=== PATIENT | male | born 1965 | race Caucasian/White ===

== ENCOUNTER 2022-04-17 12:56 | Outpatient (REF) | payer MEDICAID, SELFPAY ==
--- NOTE | 2022-04-20 08:48 | MHC.AU.HA1 ---
Hearing Aid Evaluation Date of Visit: 04/17/22 Historical Information: Description of Hearing: Right- Moderate to profound sensorineural hearing loss- very poor word discrimination (4%) Left- Mild to severe sensorineural hearing loss- excellent word discrimination (100%) Summary: Patient has been followed by [facility] for asymmetrical hearing loss. He has used personal amplifiers purchased from the store in the past, but did not find that they met his needs. He also felt that wearing on the right ear was more distracting than beneficial. Discussed options. A Bi-CROS system is recommended. Patient is interested in a rechargeable model and likes the BTE style. At the moment there no manufacturers offering a BTE-R style for the CROS itself, but we can still get a BTE-R for the left ear and get a similar mold for the right ear to help with retention. Hearing Aid Prescription: Based on the individual?s shared listening needs, communication environments, dexterity, desire for connectivity, and personal preferences, the following prescription for amplification has been made: Right ear: Make, Model, Color: [employer] CROS PX miniRITE R, Chroma Beige Battery Size: Rechargeable Bowling Ball Finisher/Slim Tube: 2 Type of Earmold/Dome/CShell/SlimTip: Microsonic M2000 skeleton mold Left ear: Make, Model, Color: [employer]on More 2 miniBTE-R, Chroma Beige Battery Size: Rechargeable Type of Earmold/Dome/CShell/SlimTip: Microsonic M2000 skeleton mold Action Taken/Action Needed: Earmold Impressions Taken. Hearing Instrument Fitting to be scheduled when materials arrive Primary Diagnosis: H90.3 Bilateral Sensorineural Hearing Loss Signature: Provider: Darwin Portillo, [facility]
== END 2022-04-17 12:57 | disposition home or self-care (01) ==
LOC: HO.HAP 12:56
PROVIDERS: PCP Internal Medicine; Visit Provider Internal Medicine
DX: Z46.1 Encounter for fitting and adjustment of hearing aid (principal); H90.3 Sensorineural hearing loss, bilateral
CPT/HCPCS: 92591; V5275

== ENCOUNTER 2022-06-08 10:26 | Outpatient (REF) | payer MEDICAID, SELFPAY ==
--- NOTE | 2022-06-08 11:43 | MHC.AU.HA2 ---
Hearing Instrument Fitting- Adult- Binaural Date of Visit: 06/08/22 Hearing Instruments Dispensed: Right Ear: Make, Model, Color, Serial Number: Ot[employer]on CROS PX miniRITE R, Chroma Beige [id number] Bowling Floor Manager Repair Warranty: 05/20/2025 Bowling Floor Manager Loss and Damage Warranty: 05/20/2025 [facility] Service Plan: 06/08/2022 Battery Size: Rechargeable Real Estate Manager/Slim Tube: 2 Earmold/Dome/CShell/SlimTip: Microsonic M2000 skeleton mold Left Ear: Make, Model, Color, Serial Number: Otalon More 2 miniBTE-R, Chroma Beige SN [id number] Bowling Floor Manager Repair Warranty: 05/20/2025 Bowling Floor Manager Loss and Damage Warranty: 05/20/2025 [facility] Service Plan: 06/08/2022 Battery Size: Rechargeable Real Estate Manager/Slim Tube: Earmold/Dome/CShell/SlimTip: Microsonic M2000 skeleton mold Accessories/Assistive Technology: Business Development Professional 1.0 MINIBTE R Oticon SN [id number] [facility] 05/20/2025 Summary of Fitting: Hearing Aid Fitting- Verifit performed and levels adjusted to better reach targets. Patient felt full target was a little too loud- lowered overall gain by 3 steps. Patient was pleased with the sound of the instruments and did not feel any additional adjustments were needed at this time. Patient was able to hear well when I was standing on his right side, out of line of sight. Hearing aid care and use were discussed and practiced. Recommendations: A hearing instrument follow-up was scheduled. Diagnosis Code(s): Primary Diagnosis: H90.3 Bilateral Sensorineural Hearing Loss Signature: Provider: Darwin Portillo, [facility]
== END 2022-06-08 10:27 | disposition home or self-care (01) ==
LOC: HO.HAP 10:26
PROVIDERS: Visit Provider Internal Medicine
DX: Z46.1 Encounter for fitting and adjustment of hearing aid (principal); H90.3 Sensorineural hearing loss, bilateral
CPT/HCPCS: V5011; V5020; V5221; V5240; V5264

== ENCOUNTER 2022-08-29 09:44 | Outpatient (REF) | payer MEDICAID, SELFPAY ==
--- NOTE | 2022-08-29 14:39 | MHC.AU.HA3 ---
Hearing Instrument Follow-Up- Binaural Date of Visit: 08/29/22 Right Ear: Make, Model, Color, Serial Number: O[employer]on CROS PX miniRITE R, Chroma Beige [id number] Clerk Of Works Repair Warranty: 05/20/2025 Clerk Of Works Loss and Damage Warranty: 05/20/2025 [facility] Service Plan: 06/08/2023 Battery Size: Rechargeable Malt Loader/Slim Tube: 2 Earmold/Dome/CShell/SlimTip:Microsonic M2000 skeleton mold Dispensed By: [facility] Date of Fittin06/08/2022 Left Ear: Make, Model, Color, Serial Number: Oticon More 2 miniBTE-R, Chroma Beige SN [id number] Clerk Of Works Repair Warranty: 05/20/2025 Clerk Of Works Loss and Damage Warranty: 05/20/2025 [facility] Service Plan: 06/08/2023 Battery Size: Rechargeable Earmold/Dome/CShell/SlimTip: Microsonic M2000 skeleton mold Dispensed By: [facility] Date of Fittin06/08/2022 Follow-Up Summary: Patient dropped off both hearing instruments, reporting they were not charging. The tubing in the left hearing aid was completely clogged with wax. Re-tubed the mold. Tried the right instrument in a stock supercharger mechanic, and lit up orange. As a precaution, both hearing instruments were sent to [employer] for repair. The molds and case are in the Repair drawer. Left a voicemail with the patient to let him know they were going out for repair. Recommendations: Patient will be contacted when materials have arrived. Diagnosis Code(s): Primary Diagnosis: H90.3 Bilateral Sensorineural Hearing Loss Signature: Provider: Darwin Portillo, [facility]
== END 2022-08-29 09:45 | disposition home or self-care (01) ==
LOC: HO.HAP 09:44
PROVIDERS: Visit Provider Internal Medicine
DX: Z13.89 Encounter for screening for other disorder (principal)

== ENCOUNTER 2022-09-25 12:48 | Outpatient (REF) | payer OTHER, SELFPAY | END 2022-09-25 12:49 | disposition home or self-care (01) | LOC: HO.HAP 12:48 | PROVIDERS: Visit Provider Internal Medicine | DX: Z13.89 Encounter for screening for other disorder (principal) ==

== ENCOUNTER 2022-10-12 12:45 | Emergency (ER) | payer OTHER, SELFPAY ==
--- NOTE | ~2022-10-12 | XR_ITS ---
EXAMINATION: XR ABDOMEN KUB CLINICAL INDICATION: Constipation COMPARISON: None available. TECHNIQUE: AP view of the abdomen. FINDINGS: Paucity of bowel gas in the midabdomen slightly limits evaluation. No dilated loops of bowel visualized. Mild fecal loading noted throughout the colon. Degenerative arthropathy of the thoracolumbar spine. Degenerative changes of the bilateral femoral acetabular joints. Visualized portions of the chest are unremarkable. Soft tissues are unremarkable. XR/XR KUB IMPRESSION: 1. Paucity of bowel gas in the midabdomen slightly limits evaluation. 2. No dilated loops of bowel visualized. 3. Mild fecal loading noted throughout the colon.
[2022-10-12 13:25] VITALS: BP 135/75; PULSE 71; RESP 16; TEMP 36.5; O2SAT 95; BMI 35.9
--- NOTE | 2022-10-12 13:26 | ED_ITS ---
HPI - General Adult General Chief complaint: Abdominal Pain Stated complaint: constipated Time Seen by Provider: 10/12/22 15:50 Source: patient Mode of arrival: ambulatory Limitations: no limitations History of Present Illness HPI narrative: 57-year-old male presents emergency room and stating he has not had a bowel movement for the past 4 days. Patient states he is taking MiraLax then switched magnesium citrate. Patient states he has got some crampy pain in the stop eating today he denies fevers chills chest pain nausea vomiting. He denies having any previous surgeries to his abdomen. Related Data Previous Rx's Medication Instructions Recorded polyethylene glycol 3350 17 17 g PO BID #510 grams 10/12/22 gram/dose oral powder (Miralax) sennosides 8.6 mg capsule (senna) 8.6 mg PO BEDTIME #30 caps 10/12/22 Allergies Allergy/AdvReac Type Severity Reaction Status Date / Time amoxicillin Allergy Hives Verified 10/12/22 13:25 Review of Systems Review of Systems: Review of systems: General: Patient denies any fever chills recent illness or falls Musculoskeletal: Denies back pain or body aches or other injuries HEENT: denies headache, runny nose, ear pain Respiratory: denies shortness of breath, cough Cardiovascular: no chest pain or palpitations : denies dysuria, frequency Abdomen: Constipation no nausea vomiting denies abdominal pain Extremities: no swelling, no pain Skin: no diaphoresis Yes all other systems are reviewed and are negative PMFSH Social History Social History Alcohol intake: current Alcohol intake frequency: holidays/special occasions only Smoked in Last 30 Days: No Use of substances other than those prescribed or required for medical reasons: No Advance Directives: No Physical Exam ED Vital Signs: Vital Signs - 24 hr 10/12/22 13:25 10/12/22 16:00 Temperature 97.7 F 99.6 F Pulse Rate 71 60 Respiratory Rate 16 16 Blood Pressure 135/75 131/75 Pulse Oximetry 95 Oxygen Delivery Method Room Air Room Air BMI result Body Mass Index 35.9 General: Well-appearing well-nourished in no signs of distress HEENT: Normocephalic atraumatic Neck: No signs of JVD, no masses no tenderness or lymphadenopathy Cardiovascular: Regular rate and rhythm Respiratory: Clear to auscultation bilaterally Abdomen: Soft nontender no masses rectal exam performed guiac negative quality assurance specialist confirmed. No stool was found in the rectal vault Extremities: Normal pedal pulses no signs of edema Skin: Dry warm no rashes Back: No tenderness full ROM Course Course Course Narrative: RME- 57-year-old male presents for evaluation of left lower abdominal pain, constipation. Symptoms started 1 week ago. I going to he reports he has not had a bowel movement in the last week. He has tried [id number] MiraLax and magnesium citrate without any improvement. Plan for labs, KUB. Further workup as directed by primary provider Medical Decision Making Medical Decision Making [facility] Narrative: 49-year-old male with 4 days of constipation patient looks otherwise well as belly exam is benign I do not think patient needs any imaging I do feel comfortable sending the patient home with senna and MiraLax twice a day. Differential Diagnosis Differential Diagnoses: The differential diagnosis associated with the presentation includes Constipation bowel obstructions much less likely as the patient has no history of surgeries his belly exam is benign Lab Data [facility] Lab Attestation statement: I reviewed the patient's lab results. 10/12/22 13:45 10/12/22 13:45 Labs: Lab Results 10/12/22 10/12/22 10/12/22 Range/Units 13:45 13:45 16:13 WBC 14.0 H (4.8-10.8) X10*3/uL RBC 4.66 (4.60-5.80) X10*6/uL Hgb 13.4 L (14.0-18.0) g/dl Hct 39.9 L (42.0-52.0) % MCV 85.6 (80.0-98.0) fL MCH 28.8 (27.0-33.0) pg MCHC 33.6 (31.0-36.0) g/dl RDW 13.0 (11.0-16.0) % Plt Count 198 (160-400) X10*3/uL MPV 11.9 (9.4-12.4) fL Immature Gran % (Auto) 0.4 (0.0-0.4) % Neut % (Auto) 82.2 H (45-73) % Lymph % (Auto) 7.8 L (20-40) % [place] % (Auto) 8.5 (2-11) % Eos % (Auto) 0.9 (0-4) % Baso % (Auto) 0.2 (0-2) % Lymph # (Auto) 1.1 L (1.2-4.9) X10*3/uL [place] # (Auto) 1.2 (0.1-1.2) X10*3/uL Eos # (Auto) 0.1 (0.0-0.4) X10*3/uL Baso # (Auto) 0.0 (0.0-0.2) X10*3/uL Abs Immat Gran (auto) 0.05 H (0.00-0.03) X10*3/uL Absolute Neuts (auto) 11.5 H (2.0-8.3) x10*3/uL Absolute Nucleated RBC 0.000 (0.0-0.012) X10*3/uL Nucleated RBC % (auto) 0.0 (0.0-0.2) /100WBC Sodium 141 (135-145) mmol/L Potassium 4.2 (3.3-5.1) mmol/L Chloride 106 (96-108) mmol/L Carbon Dioxide 30 H (22-29) mmol/L Anion Gap 9 L (12-20) BUN 6 L (9-16) mg/dL Creatinine 0.73 (0.5-1.4) mg/dL Estim Creat Clear Calc 126.7 Estimated GFR > 60 Random Glucose 101 (60-115) mg/dL Calcium 9.5 (8.4-10.2) mg/dL Total Bilirubin 0.9 (0.0-1.0) mg/dL AST 15 (5-37) U/L ALT 20 (0-40) U/L Alkaline Phosphatase 63 (39-117) U/L Total Protein 6.1 L (6.5-8.0) g/dL Albumin 3.3 L (3.5-5.0) g/dL Lipase 12 (8-78) U/L Urine Color Yellow Urine Appearance Clear Urine pH 6.5 (5.0-9.0) Ur Specific [place] 1.020 (1.005-1.025) Urine Protein Negative (Neg-Trace) mg/dL Urine Glucose (UA) Negative (Negative) mg/dL Urine Ketones Negative (Negative) mg/dL Urine Blood Negative (Negative) Urine Nitrite Negative (Negative) Ur Leukocyte Esterase Negative (Negative) Urine RBC 3-5 H (0-2) /HPF Urine WBC 0-5 (0-5) /HPF Ur Squamous Epith Cells 0-2 (0-2) /HPF Urine Bacteria None Seen (None Seen) Hyaline Casts 0-2 (0-2) /LPF Radiology Impression Discussion of test interpretation with radiology: I have reviewed the radiologist's reading. Radiologist Impression: Abdominal shows some stool and fecal loading External Record Review External record reviewed: Inpatient record Discharge Plan Discharge Clinical Impression: Constipation Patient Disposition: Home, Self-Care Instructions: Constipation (DC), Fleet Enema (ED) Additional Instructions: You were seen today for constipation You had an x-ray and labs done which were all unremarkable. Please take MiraLax twice a day you also try this and see if that helps relieve her symptoms. Prescriptions: New polyethylene glycol 3350 [Miralax] 17 gram/dose powder 17 g PO BID Qty: 510 0RF senna 8.6 mg capsule 8.6 mg PO BEDTIME Qty: 30 0RF
[2022-10-12 13:50] LABS: MANUAL DIFF FLAG NO
[2022-10-12 14:06] LABS: Basophils Percent Auto 0.2 % (0-2); Eosinophils Absolute Auto 0.1 X10*3/uL (0.0-0.4); Eosinophils Percent Auto 0.9 % (0-4); Hematocrit 39.9 % (42.0-52.0); Hemoglobin 13.4 g/dl (14.0-18.0); Imm Gran Abs Auto 0.05 X10*3/uL (0.00-0.03); Imm Gran Pct Auto 0.4 % (0.0-0.4); Lymphocytes Absolute Auto 1.1 X10*3/uL (1.2-4.9); Lymphocytes Percent Auto 7.8 % (20-40); Mean Corpuscular HGB Conc 33.6 g/dl (31.0-36.0); Mean Corpuscular Hemoglobin 28.8 pg (27.0-33.0); Mean Corpuscular Volume 85.6 fL (80.0-98.0); Mean Platelet Volume 11.9 fL (9.4-12.4); Monocytes Absolute Auto 1.2 X10*3/uL (0.1-1.2); Monocytes Percent Auto 8.5 % (2-11); Neutrophils Absolute Auto 11.5 x10*3/uL (2.0-8.3); Neutrophils Percent Auto 82.2 % (45-73); Platelet Count 198 X10*3/uL (160-400); Red Blood Count 4.66 X10*6/uL (4.60-5.80)
[2022-10-12 14:20] LABS: Alanine Aminotransferase 20 U/L (0-40); Albumin Level 3.3 g/dL (3.5-5.0); Alkaline Phosphatase 63 U/L (39-117); Anion Gap 9 (12-20); Aspartate Amino Transferase 15 U/L (5-37); Bilirubin Total 0.9 mg/dL (0.0-1.0); Blood Urea Nitrogen 6 mg/dL (9-16); Calcium 9.5 mg/dL (8.4-10.2); Carbon Dioxide 30 mmol/L (22-29); Chloride 106 mmol/L (96-108); Creatinine Clr Calc Pharmacy 126.7; Estimated Glomerular Filt Rate > 60; Glucose Random 101 mg/dL (60-115); Lipase 12 U/L (8-78); Potassium 4.2 mmol/L (3.3-5.1); Sodium 141 mmol/L (135-145); Total Protein 6.1 g/dL (6.5-8.0)
[2022-10-12 16:00] VITALS: BP 131/75; PULSE 60; RESP 16; TEMP 37.6
--- NOTE | 2022-10-12 16:14 | MHC.EDTECH ---
THIS PCT ASSUMED CARE OF PT AT 1500 ,VITALS SIGN TAKEN ,PT URINE SAMPLE COLLECTED AND SENT TO LAB .
[2022-10-12 16:28] LABS: Appearance Urine Clear; Color Urine Yellow; Glucose Urine UA Negative (Negative); Leukocyte Esterase Urine Negative (Negative); Nitrite Urine Negative (Negative); PH 6.5 (5.0-9.0); Urine Blood Negative (Negative); Urine Ketones Negative (Negative); Urine Protein Negative (Neg-Trace)
[2022-10-12 16:30] LABS: Bacteria Urine None Seen (None Seen); Hyaline Casts Urine 0-2 /LPF (0-2); Squamous Epithelial Cell Urine 0-2 /HPF (0-2); WBC Urine 0-5 /HPF (0-5)
== END 2022-10-12 16:45 | disposition home or self-care (01) ==
PROVIDERS: Physician Assistant; Emergency Provider Student in an Organized Health Care Education/Training Program
DX: K59.00 Constipation, unspecified (principal); R10.32 Left lower quadrant pain
CPT/HCPCS: 36415; 74018; 80053; 81001; 83690; 85025; 99283; 99284

== ENCOUNTER 2023-05-15 12:27 | Outpatient (REF) | payer OTHER, SELFPAY | END 2023-05-15 12:28 | disposition home or self-care (01) | LOC: HO.HAP 12:27 | PROVIDERS: Visit Provider Otolaryngology | DX: Z13.89 Encounter for screening for other disorder (principal) ==

== ENCOUNTER 2023-05-17 14:24 | Outpatient (REF) | payer OTHER, SELFPAY | END 2023-05-17 14:25 | disposition home or self-care (01) | LOC: HO.HAP 14:24 | PROVIDERS: Visit Provider Otolaryngology | DX: Z13.89 Encounter for screening for other disorder (principal) ==

== ENCOUNTER 2023-09-25 15:25 | Outpatient (REF) | payer OTHER, SELFPAY | END 2023-09-25 15:26 | disposition home or self-care (01) | LOC: HO.HAP 15:25 | PROVIDERS: Visit Provider Otolaryngology | DX: Z13.89 Encounter for screening for other disorder (principal) ==

== ENCOUNTER 2023-09-26 13:24 | Outpatient (REF) | payer OTHER, SELFPAY | END 2023-09-26 13:25 | disposition home or self-care (01) | LOC: HO.HAP 13:24 | PROVIDERS: Visit Provider Otolaryngology | DX: Z46.1 Encounter for fitting and adjustment of hearing aid (principal); H90.3 Sensorineural hearing loss, bilateral | CPT/HCPCS: 92593; 99499 ==

== ENCOUNTER 2024-01-29 23:00 | Emergency (ER) | payer OTHER, SELFPAY ==
[2024-01-29 23:08] VITALS: BP 106/60; PULSE 73; O2SAT 98
[2024-01-29 23:13] VITALS: BMI 34.5
[2024-01-29 23:19] VITALS: BP 92/58; PULSE 72; RESP 18; TEMP 36.3; O2SAT 95
--- NOTE | 2024-01-29 23:22 | PC.NURSE ---
MD chaves made aware of patient's chief complaint.
--- NOTE | 2024-01-29 23:29 | ED_ITS ---
HPI - Male Genitourinary General Chief complaint: Urogenital-Male Stated complaint: TESTICULAR PAIN/SWOLLEN/WARM X1 HOUR PER EMS Time Seen by Provider: 01/29/24 23:29 Source: patient Mode of arrival: ambulatory Limitations: no limitations History of Present Illness ED Provider: anastacio CELIS Narrative: Patient has just noticed swelling of the penis area an hour prior to arrival with itching denies any other rash no swelling of the scrotum Related Data Previous Rx's ?Medication ?Instructions ?Recorded polyethylene glycol 3350 17 17 g PO BID #510 grams 10/12/22 gram/dose oral powder (Miralax) sennosides 8.6 mg capsule (senna) 8.6 mg PO BEDTIME #30 caps 10/12/22 diphenhydramine HCl 25 mg capsule 50 mg (2 x 25 mg) PO TID PRN 01/30/24 (Benadryl) allergic reaction #20 caps Allergies Allergy/AdvReac Type Severity Reaction Status Date / Time amoxicillin Allergy Hives Verified 01/29/24 23:14 cephalexin [From Keflex] Allergy Unknown Verified 01/29/24 23:15 Review of Systems 2 Review of Systems: Yes all other systems are reviewed and are negative [facility] Social History Social History Alcohol intake: current Alcohol intake frequency: holidays/special occasions only Advance Directives: No Advance Directives Information Provided: No Do you have a plan to hurt others: No Plan Physical Exam 2 Vital Signs: Vital Signs: Last Vital Signs Temp 97.4 F 01/29/24 23:19 Pulse 72 01/29/24 23:19 Resp 18 01/29/24 23:19 BP 92/58 L 01/29/24 23:19 Pulse Ox 95 01/29/24 23:19 O2 Del Method Room Air 01/29/24 23:19 BMI result Body Mass Index 34.5 : Male genitals images: 1. Swelling of the penis is clinically allergic reaction testicles are normal nontender epididymis normal nontender no hernia or hydrocele noticed Medications Administered Discontinued Medications Generic Name Dose Route Start Last Admin Trade Name Freq PRN Reason Stop Dose Admin Dexamethasone 10 mg 01/29/24 23:36 01/29/24 23:46 Dexamethasone 2 Mg Tablet PO 01/29/24 23:37 10 mg ONCE ONE Administration Diphenhydramine HCl 50 mg 01/29/24 23:36 01/29/24 23:45 Diphenhydramine Hcl 25 Mg Capsule PO 01/29/24 23:37 50 mg ONCE ONE Administration Medical Decision Making Medical Decision Making [facility] Narrative: Patient is localized urticarial reaction to some agent not clear improved after Decadron p.o. and Benadryl at this time on reexamination swelling has much decreased and itching has decreased will discharge patient home on Benadryl Discharge Plan Discharge Clinical Impression: Allergic reaction Patient Disposition: Home, Self-Care Instructions: General Allergic Reaction (ED) Additional Instructions: You have localized allergic reaction to some agent not clear what Benadryl 1-2 tablets every 6 hours as needed Report to ER/PCP if swelling gets worse Prescriptions: New diphenhydramine HCl [Benadryl] 25 mg capsule 50 mg PO TID PRN (Reason: allergic reaction) Qty: 20 0RF No Action polyethylene glycol 3350 [Miralax] 17 gram/dose powder 17 g PO BID Qty: 510 0RF senna 8.6 mg capsule 8.6 mg PO BEDTIME Qty: 30 0RF Print Language: Tongan
[2024-01-29] MEDS: diphenhydrAMINE HCL 25 MG CAPSULE 50 MG PO (23:45)
[2024-01-29] MEDS: dexAMETHasone 2 MG TABLET 10 MG PO (23:46)
[2024-01-30 00:54] VITALS: BP 100/59; PULSE 70; RESP 16; TEMP 36.6; O2SAT 96
== END 2024-01-30 00:56 | disposition home or self-care (01) ==
PROVIDERS: Emergency Provider Internal Medicine
DX: N50.819 Testicular pain, unspecified (principal); N50.89 Other specified disorders of the male genital organs; B35.6 Tinea cruris
CPT/HCPCS: 99283; 99284; J8540

== ENCOUNTER 2024-03-31 14:23 | Outpatient (REF) | payer OTHER, SELFPAY | END 2024-03-31 14:24 | disposition home or self-care (01) | LOC: HO.HAP 14:23 | DX: Z13.89 Encounter for screening for other disorder (principal) ==

== ENCOUNTER 2024-04-02 12:31 | Outpatient (REF) | payer OTHER, SELFPAY | END 2024-04-02 12:32 | disposition home or self-care (01) | LOC: HO.HAP 12:31 | PROVIDERS: Visit Provider Internal Medicine | DX: Z46.1 Encounter for fitting and adjustment of hearing aid (principal); H90.3 Sensorineural hearing loss, bilateral | CPT/HCPCS: 92593; 99499 ==

== ENCOUNTER 2025-01-15 12:27 | Outpatient (REF) | payer OTHER, SELFPAY ==
--- NOTE | 2025-01-15 15:22 | MHC.AU.HA3 ---
Hearing Instrument Follow-Up- Binaural Date of Visit: 01/15/25 Right Ear: Make, Model, Color, Serial Number: [employer]on CROS PX miniRITE R [id number] Color: Chroma Beige Professor Of Art Repair Warranty: 05/20/2025 Professor Of Art Loss and Damage Warranty: 05/20/2025 [facility] Service Plan: 06/08/2023 Battery Size: Rechargeable Dairy Farm Worker/Slim Tube: 2/60 Earmold/Dome/CShell/SlimTip:Microsonic M2000 skeleton mold Type of Wax Guard: miniFit Dispensed By: [facility] Date of Fittin06/08/2023 Left Ear: Make, Model, Color, Serial Number: Oticon More 2 miniBTE-R SN: [id number] Color: Chroma Beige Professor Of Art Repair Warranty: 05/20/2025 Professor Of Art Loss and Damage Warranty: 05/20/2025 [facility] Service Plan: 06/08/2023 Battery Size: Rechargeable Earmold/Dome/CShell/SlimTip: Microsonic M2000 skeleton mold Dispensed By: [facility] Date of Fittin06/08/2023 Follow-Up Summary: [place] and CROS dropped off in need of maintenance. Tube hard, wax built up in tube. Cleaned hearing aid and CROS (2), cleaned earmolds (2), replaced tubing (1), ran [place] dehumidifier (1) for [id number] units. Listening check positive. Tear noted on vent of left EM, advised schedule impression appointment to proceed with ordering new left earmold. Recommendations: Recommendations: Hearing instrument follow-up or maintenance as needed. Diagnosis Code(s): Primary Diagnosis: H90.3 Bilateral Sensorineural Hearing Loss Signature: Provider: Darwin Michaud, CCC-A
== END 2025-01-15 12:28 | disposition home or self-care (01) ==
LOC: HO.HAP 12:27
PROVIDERS: Visit Provider Internal Medicine
DX: Z13.89 Encounter for screening for other disorder (principal)

== ENCOUNTER 2025-01-16 11:43 | Outpatient (REF) | payer OTHER, SELFPAY | END 2025-01-16 11:44 | disposition home or self-care (01) | LOC: HO.HAP 11:43 | PROVIDERS: PCP Internal Medicine; Visit Provider Internal Medicine | DX: Z13.89 Encounter for screening for other disorder (principal) | CPT/HCPCS: 92593; 99499 ==